=== PATIENT | female | born 1950 | race Caucasian/White ===

== ENCOUNTER 2017-10-19 18:31 | Emergency (ER) | payer MEDICARE ==
--- NOTE | 2017-10-19 22:16 | ULT ---
LEFT LOWER EXTREMITY VENOUS ULTRASOUND: 10/19/17 HISTORY: Left lower extremity pain and edema. TECHNIQUE: Multiplanar flores scale and color doppler images were obtained in a left lower extremity venous ultras ound. Spectral analysis of the doppler waveforms were performed. FINDINGS: The left common femoral vein, profunda femoral vein, superficial femoral vein, and popliteal vein are normal in appearance without visible thrombus. these vessels demonstrate normal compression, flow, a nd augmentation. The posterior tibial vein and greater saphenous vein are also patent. IMPRESSION: No evidence of left lower extremity DVT. POS: HELDER
== END 2017-10-19 20:30 | disposition home or self-care (01) ==
LOC: SCSER 18:31
DX: M79.662 Pain in left lower leg (principal); I10 Essential (primary) hypertension